=== PATIENT | female | born 1985 | race Caucasian/White ===

== ENCOUNTER 2023-05-12 00:02 | Emergency (ER) | payer SELFPAY ==
[2023-05-12] VITALS (9 sets, daily range): BP systolic 125–150; BP diastolic 74–86; PULSE 65–100; RESP 16; TEMP 36.6–36.7; O2SAT 77–99
--- NOTE | 2023-05-12 00:04 | ED_ITS ---
HPI - General Adult General Chief complaint: Urogenital-Female Stated complaint: UTI and Noro virus Time Seen by Provider: 05/12/23 00:04 History of Present Illness HPI narrative: 29-year-old female with history of bipolar, migraines, asthma and anxiety disorder presents with her boyfriend stating she had just left [facility] and signed out Against Medical Advice because she was unhappy without she was being treated. She states that she was diagnosed with a urinary tract infection and norovirus and just left the hospital and wanted to come here. She denies headache or blurred vision. She has no chest pain or shortness of breath. She denies any abdominal pain, nausea or vomiting. She denies ongoing urinary complaints. She states she is feeling much better but still has some portions of the past few days that she does not remember but generally is feeling much better. Records were obtained and patient arrived to the [facility] Emergency Department on May 08 and was altered and subsequently intubated for airway protection and had an extensive workup including head CT, lumbar puncture significant labs which had initially noted an elevated lithium level though on repeat had normalized. Patient states she no longer takes lithium and has not for quite some time. Urine noted multiple abnormal findings including MDMA and methamphetamines. She was extubated a day later and continued to be treated for UTI and was found to have norovirus. Lumbar puncture was unremarkable. Related Data Previous Rx's Medication Instructions Recorded sulfamethoxazole 800 1 tab PO BID 10 days #20 tabs 05/12/23 mg-trimethoprim 160 mg tablet (Bactrim DS) Allergies Allergy/AdvReac Type Severity Reaction Status Date / Time cephalexin [From Keflex] Allergy Verified 05/12/23 00:14 Review of Systems Review of Systems Narrative: GENERAL: Denies chills, fatigue, malaise, fever, sweats. HEENT: Denies sinus pain, ear pain, sore throat, difficulty swallowing, dizziness. RESPIRATORY: Denies dyspnea, cough, wheezing, hemoptysis, sputum. CARDIOVASCULAR: Denies chest pain, palpitations, orthopnea, edema, GASTROINTESTINAL: Denies nausea, vomiting, abdominal pain, diarrhea, constipation, melena. : Denies dysuria, frequency, incontinence, hematuria, urinary retention. MUSCULOSKELETAL: denies weakness, joint pain, or bony pain SKIN: Denies rash, skin lesions, or other NEUROLOGIC: Denies weakness, headache, numbness, change in speech, confusion, seizures, incoordination. PSYCHIATRIC: No concerning psychosocial issues. 12 point review of systems is negative except for those stated above Patient History Social History Smoking Status: Current every day smoker Exam Narrative Exam Narrative: GENERAL: [37] year old patient appears stated age. Well-developed patient, in mild distress. HEAD: Atraumatic. Normocephalic. EYES: Pupils equal round and reactive. Extraocular motions intact. No scleral icterus. No injection or drainage. ENT: Nose without bleeding, purulent drainage. Throat without erythema, tonsillar hypertrophy or exudate. Airway patent. NECK: Trachea midline. Non tender CARDIOVASCULAR: Regular rate and rhythm without murmurs, gallops, or rubs. RESPIRATORY: Clear to auscultation. Breath sounds equal bilaterally. No wheezes, rales, or rhonchi. GASTROINTESTINAL: Abdomen soft, non-tender, nondistended. EXTREMITIES: No edema or joint tenderness. BACK: Nontender without deformity or crepitance. No flank tenderness. NEURO: AOx3. SKIN: No rash or erythema of visible areas Initial Vital Signs Initial Vital Signs: Vital Signs Temperature 98.1 F 05/12/23 00:15 Pulse Rate 100 H 05/12/23 00:15 Respiratory Rate 16 05/12/23 00:15 Blood Pressure 136/86 05/12/23 00:15 Pulse Oximetry 96 05/12/23 00:15 Oxygen Delivery Method Room Air 05/12/23 00:15 Course Vital Signs Vital signs: Vital Signs - 8 hr 05/12/23 00:15 Temperature 98.1 F Pulse Rate 100 H Respiratory Rate 16 Blood Pressure 136/86 Pulse Oximetry 96 Oxygen Delivery Method Room Air Medical Decision Making Lab Data Labs: Point of Care Testing Test Results Negative Urine Dip Bedside Urine Glucose Negative Bedside Urine Bilirubin - Negative Bedside Urine Ketone - Negative Urine Specific [place] 1.025 Bedside Urine Occult Blood - Negative Bedside Urine pH 6.0 Bedside Urine Protein +/- 15 Bedside Urine Urobilinogen - Negative Bedside Urine Nitrite - Negative Bedside Urine Leukocytes - Negative Esterase Point of care testing: Point of Care Testing Test Results Negative Urine Dip Bedside Urine Glucose Negative Bedside Urine Bilirubin - Negative Bedside Urine Ketone - Negative Urine Specific [place] 1.025 Bedside Urine Occult Blood - Negative Bedside Urine pH 6.0 Bedside Urine Protein +/- 15 Bedside Urine Urobilinogen - Negative Bedside Urine Nitrite - Negative Bedside Urine Leukocytes - Negative Esterase MDM Narrative Medical decision making narrative: 37-year-old female presents after leaving from [facility] AMA earlier tonight. She has no ongoing symptoms. Her boyfriend is at bedside and confirms that she is at her neurologic baseline other than having some forgetfulness of the last few days. She had a very in depth and complete workup at [facility] with negative head CT, LP, resolution of lab abnormalities. She was set to be discharged tomorrow pending ID referral, but wanted to leave [facility] and therefore was asked to sign AMA paperwork. Her urine was sensitive to nearly all antibiotics. We had a very in depth discussion at the bedside regarding the utility of another workup but given her resolution of symptoms, stable vital signs and recent evaluation we sure the opinion that there is little to be gained. I sent prescription to her pharmacy of choice, encouraged her to follow-up closely, provided contact information for local primary care if needed and discussed return precautions including persistent vomiting, lightheadedness, chest pain, shortness of breath, worsening confusion or other concerning symptoms which both she and her significant other understood as evidenced by their ability to verbalize it back Discharge Plan Departure Patient Disposition: Home Clinical Impression: Urinary tract infection Instructions: DI for Urinary Tract Infection (UTI) Activity Restrictions/Additional Instructions: *You have been diagnosed with [urinary tract infection per [facility] records] *What to do: *Please continue to take your regular medications as directed. [x ] New medication prescriptions sent to your pharmacy: [[facility] ] [ ] New medication written as a paper prescription [ ] No new medications given *Please follow up with your primary care provider in 2-3 days, call for an appointment. Let them know you were seen in the Emergency Department and that we ask that you be seen in follow up. We will electronically transmit a record of today's note if your PCP is in our system *If you do not have a primary care provider please contact the [facility] Resource line at [phone]. They will ask some questions about your medical history and help get you set up with a doctor in the community. *Return to Emergency Department if you should have any new, worsening or concerning symptoms, such as [fever greater than 101 F, shaking chills, worsening pain, persistent vomiting or other bothersome symptoms] Prescriptions: New sulfamethoxazole-trimethoprim [Bactrim DS] 800-160 mg tablet 1 tab PO BID 10 Days Qty: 20 0RF Stand Alone Forms: Patient Portal/API
== END 2023-05-12 02:25 | disposition home or self-care (01) ==
PROVIDERS: Emergency Provider Emergency Medicine
DX: N39.0 Urinary tract infection, site not specified (principal)
CPT/HCPCS: 81003; 81025; 99282